=== PATIENT | female | born 1970 | race Caucasian/White ===

== ENCOUNTER 2021-08-05 11:23 | Emergency (ER) | payer SELFPAY ==
[~2021-08-05] VITALS: Ht 165.1 cm; Wt 56.0 kg
[~2021-08-05 11:23] MED LIST: LISI-167 PO
--- NOTE | 2021-08-05 11:35 | NUR ---
PT WITH HX OF HTN, NOT ON LISINOPRIL R/T "I'M INDIGENT AND DONT HAVE FUNDS" DISCUSSED RISK OF STROKE AND F/U WITH [facility] OR [facility]. UNDERSTANDING VERBALIZED.
[2021-08-05 15:11] VITALS: BP 201/123
--- NOTE | 2021-08-05 15:16 | NUR ---
recheck vs at 1516
--- NOTE | 2021-08-05 15:38 | NUR ---
Patient given discharge instructions and they have confirmed that they understand the instructions. Patient ambulatory with steady gait. NAD, all questions answered appropriately, denies additional needs at this time. No personal belongings left after discharge.
== END 2021-08-05 15:38 | disposition home or self-care (01) ==
LOC: ED 15:00
DX: J02.8 Acute pharyngitis due to other specified organisms (principal); B97.89 Other viral agents as the cause of diseases classified elsewhere; I10 Essential (primary) hypertension
CPT/HCPCS: 87081; 87880; 99283